=== PATIENT | female | born 1960 | race Caucasian/White ===

== ENCOUNTER → 2018-05-23 10:30 | Outpatient (CLI) | payer MEDICAID, SELFPAY ==
--- NOTE | 2018-05-23 10:34 | RAD_ITS ---
STUDY: X-RAY - LEFT WRIST REASON FOR EXAM: Wrist pain. TECHNIQUE: 3 view(s) of the wrist were obtained. COMPARISON: None. FINDINGS: Normal visualized distal radius and ulna. Normal radiocarpal articulation. Normal distal radioulnar articulation. Normal carpal bones. There is moderate to severe joint space narrowing of the triscaphe articulation. Normal carpometacarpal articulation of the thumb. Normal second through fifth carpometacarpal articulations. Normal visualized metacarpal bones. The soft tissue structures are unremarkable. RAD/Wrist min 3 Views IMPRESSION: Triscaphe arthrosis. Electronically Signed: Mayito Jenkins MD at 14:35 EDT Tel , Service support ,
== END ==
PROVIDERS: Family Provider Nurse Practitioner Family; PCP Nurse Practitioner Family; Referring Provider Orthopaedic Surgery; Visit Provider Orthopaedic Surgery
DX: M25.532 Pain in left wrist (principal)
CPT/HCPCS: 73110

== ENCOUNTER → 2018-09-03 07:10 | Outpatient (CLI) | payer MEDICAID, SELFPAY ==
--- NOTE | 2018-09-03 10:18 | NEURO ---
NCS and/or EMG Patient Report Ordering Doctor: Prachi Rm DATE OF SERVICE: 09/03/18 This is a left upper extremity EMG and nerve conduction study performed on this 57-year-old female with a history of previously diagnosed carpal tunnel syndrome bilaterally several years ago. She has not had intervention. She says symptoms are now worse on the left side primarily affecting the wrist with pain on palpation. Also describes paresthesias in her left fourth and fifth digits. There is no neck pain, she is healthy otherwise and does not consume alcohol. Left upper extremity sensory and motor nerve conduction studies performed. The median motor and sensory distal latency is very mildly prolonged with preserved amplitude and conduction velocity. The ulnar motor distal latency is mildly prolonged across the elbow with mild reduction of amplitude and conduction velocity across the elbow. The ulnar sensory responses are preserved and the radial sensory response is preserved. The median and ulnar F waves are relatively preserved. Left upper extremity needle electromyography is performed. Muscles evaluated included the first dorsal interosseous, abductor pollicis brevis, extensor indicis proprius, brachioradialis, biceps, triceps and deltoid muscles. The abductor pollicis brevis and the first dorsal interosseous both demonstrated mild increase in insertional activity with 1+ fibrillation potentials and mild motor unit amplitude increase. All other muscles demonstrated normal insertional activity with absence of pathologic spontaneous activity. Motor unit potential recruitment pattern and amplitude was otherwise normal. 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
== END ==
PROVIDERS: Family Provider Nurse Practitioner Family; PCP Nurse Practitioner Family; Referring Provider Orthopaedic Surgery; Visit Provider Orthopaedic Surgery
DX: G56.02 Carpal tunnel syndrome, left upper limb (principal)
CPT/HCPCS: 95886; 95910

== ENCOUNTER 2020-12-14 05:23 | Day surgery (SDC) | payer MEDICAID, SELFPAY ==
[2020-09-20 15:38] VITALS: BMI 20.3
[2020-09-30 11:04] VITALS: BMI 21.2
--- NOTE | 2020-11-05 10:00 | EKG12_ITS ---
Test Reason : PRE OP Blood Pressure : / mmHG Vent. Rate : 094 BPM Atrial Rate : 094 BPM P-R Int : 114 ms QRS Dur : 096 ms QT Int : 346 ms P-R-T Axes : 072 062 049 degrees QTc Int : 432 ms Normal sinus rhythm Normal ECG Confirmed by TOLU VERDE, JOSAFAT ([id number]), publications editor JUWAN LOZA ([id number]) on 11/08/2020 9:30:15 AM Referred By: Deonna Rdz Confirmed By:ROSY MOTLEY MD
[2020-11-05 10:41] LABS: Hematocrit 43.8 % (37-47); Hemoglobin 14.6 g/dL (12.0-15.0); Mean Corp Hgb Conc 33.3 g/dL (32-36); Mean Corpuscular Hgb 30.7 pg (27.0-32.0); Mean Corpuscular Volume 92.2 fL (81-99); Mean Platelet Vol. 10.8 fl (6.2-12.0); Platelet Count 253 K/mm3 (150-450); RBC Distribution Width CV 13.1 % (11.6-14.6); RBC Distribution Width SD 44.5 fl (35.1-43.9); Red Blood Count 4.75 M/mm3 (4.2-5.4); White Blood Count 7.8 K/mm3 (4.4-11.0)
[2020-11-05 11:09] LABS: Magnesium 2.2 mg/dL (1.6-2.6)
[2020-11-05 11:12] LABS: Anion Gap 5 (5-15); BUN 16 mg/dL (7-18); BUN/Creat Ratio 21.8 RATIO (10-20); Calcium,Total 9.4 mg/dL (8.5-10.1); Chloride 109 mmol/L (98-107); Creatinine, Serum 0.73 mg/dL (0.55-1.02); EST Glomerular Filtration Rate 87 mL/min (>60); Est Glom Filt Rate - Afr Amer 105 mL/min (>60); Glucose 140 mg/dL (74-106); Potassium 4.2 mmol/L (3.5-5.1); Sodium Level 140 mmol/L (136-145)
[2020-12-06 15:59] VITALS: BMI 19.8
[2020-12-14] VITALS (15 sets, daily range): BP systolic 90–113; BP diastolic 60–79; PULSE 62–84; RESP 14–18; TEMP 36.2–36.7; O2SAT 96–100; BMI 20.7
[2020-12-14 06:25] LABS: Bedside Glucose 64 mg/dL (70-110)
[2020-12-14] MEDS: Lactated Ringers 1,000 ML 40 ML IV (06:28)
[2020-12-14] MEDS: Phenazopyridine 95 MG Tablet 190 MG PO (06:29)
[2020-12-14] MEDS: Gabapentin 600 MG Tablet PO (06:32)
[2020-12-14] MEDS: dexAMETHasone 10 MG/ML Vial 8 MG IV (06:33)
[2020-12-14] MEDS: Acetaminophen 500 MG Tablet 1000 MG PO ×4 (06:33→23:13)
[2020-12-14] MEDS: Enoxaparin 40 MG/0.4 ML Syringe SC (06:34)
[2020-12-14] MEDS: Scopolamine 1mg/72hr Patch 1 PATCH TD (06:34)
--- NOTE | 2020-12-14 06:48 | HP.PCM_ITS ---
- Problem List (1) Chronic pelvic pain in female Status: Chronic Comment: US done at [place]. Suspect pelvic congestion and pelvic floor dysfunction. failed trial doxycycline. recommend proceeding with TVH BSO possible laparoscopic assisted. - Kashif History and Physical Date of Admission: 12/14/20 Intake Vital Signs 12/06/20 Height 5 ft 7 in 12/06/20 Weight: 127 lb 12/06/20 BMI 19.8 12/06/20 BP 116/90 H Intake Visit Reasons: preop TVHBSO Chief Complaint: pre op TVHBSO Health Care Law Specialist Required: No Is patient in pain?: No Allergies NSAIDS (Non-Steroidal Anti-Inflamma Allergy (Verified 12/06/20 16:00) rash shellfish derived Allergy (Verified 12/06/20 16:00) rash Medications Clonazepam 1 mg PO TID 02/10/15 [History Confirmed 12/06/20] atorvastatin 20 mg tablet 20 mg PO QHS 06/28/20 [History Confirmed 12/06/20] calcium citrate 250 mg calcium-vitamin D3 5 mcg (200 unit) tablet 1 tab PO TID 06/28/20 [History Confirmed 12/06/20] cholecalciferol (vitamin D3) 1,250 mcg (50,000 unit) capsule 1,250 mcg PO MO 06/28/20 [History Confirmed 12/06/20] phytonadione (vitamin K1) 100 mcg tablet 100 mcg PO DAILY 06/28/20 [History Confirmed 12/06/20] pregabalin 75 mg capsule 75 mg PO TID 06/28/20 [History Confirmed 12/06/20] acetaminophen 300 mg-codeine 15 mg tablet 1 tab PO BID PRN #30 tablet 11/15/20 [Rx Confirmed 12/06/20] Is last menstrual period known: No Post menopausal: No Patient : No : No [facility] Medical History Essential tremor (Acute) Fibromyalgia (Acute) Hyperlipidemia (Acute) Osteoporosis (Acute) PID (pelvic inflammatory disease) (Acute) Rheumatoid arthritis (Acute) Surgical History H/O hernia repair (Acute) H/O knee surgery (Acute) H/O laparoscopy (Acute) History of cholecystectomy (Acute) S/P wrist surgery (Acute) Family History Son Diabetes Social History (Updated 12/06/20 @ 16:[address] Deonna Rdz MD) Smoking Status: Heavy Smoker (>10/day) alcohol intake: never substance use type: does not use caffeine: Yes what type of physical activity do you participate in: walking do you feel safe at home: Yes additional social history: Kashif- Patient works at [employer] in [place] HPI preop TVHBSO: Details: * MINA QUEZADA is a 60 year old who presents for preop visit she is having a hysterectomy for chronic pelvic pain. Female Reproductive History Questions: Metorrhagia: No Menopausal Symptoms: No night sweats Pregancy History 4 Elective abortions Hx Para 4 Spontaneous abortions Hx # Term Pregnancies Ectopic pregnancies Hx # Pregnancies Multiple births # of living children ROS Const Constitutional: Denies fatigue, night sweats, weight gain or weight loss ENT ENT: Reports system reviewed and no additional complaints, except as docu Cardio Card: Denies chest pain Resp Resp: Denies cough or dyspnea GI GI: Reports abdominal pain and bloating (occasional); denies change in bowel habits, constipation, nausea or vomiting : Denies nipple discharge, urinary frequency, urinary incontinence, urinary hesitancy, urinary urgency, vaginal discharge, vaginal dryness, vaginal odor or vaginal itching Musc Musc: Denies joint pain, back pain or muscle weakness Skin Skin/Breast: Denies hair loss, change in hair, dry skin, breast lump, breast pain, breast skin changes or nipple discharge Neuro Neuro: Reports system reviewed and no additional complaints, except as docu Psych Psych: Reports system reviewed and no additional complaints, except as docu Endo Endo: Denies cold intolerance, excessive sweating, heat intolerance or increased thirst Rickie/Lymph Hematologic/Lymphatic: Denies easy bleeding, Denies easy bruising, Denies enlarged lymph nodes Exam Const General: cooperative, healthy appearing, comfortable, no acute distress, well developed Orientation: alert [facility] Head: normal to inspection, normocephalic Ears: hearing grossly normal bilaterally, external ears normal Nose: external nose normal, nares normal Face and sinus: normal facial exam Neck Neck: normal visual inspection, no lymphadenopathy Thyroid: thyroid normal Chest Chest palpation & inspection: normal inspection of the chest Resp Effort & Inspection: normal respiratory effort Auscultation: clear to auscultation bilaterally Cardio Rate: regular rate Rhythm: regular rhythm Heart Sounds: S1 normal, S2 normal GI Inspection: normal to inspection, non-distended Palpation: soft, no hepatosplenomegaly General: bladder normal to palpation External Female Exam: normal external appearance, normal appearance of the urethra Urethra: normal appearance of the urethra, normal palpation, no discharge Speculum Exam - Vagina: normal appearance of the vagina, normal vaginal discharge Speculum Exam - Cervix: normal appearance of the cervix, cervical tenderness Bimanual Exam- Vagina & Uterus: normal bimanual exam, uterine size normal, bladder normal to palpation, uterine shape normal, cervical tenderness, uterine mobility normal, uterine consistency normal, normal cervical palpation, uterus tender Bimanual Exam- Adnexa, other: normal adnexae, adnexae mobile, no adnexal masses, rectocele Pelvic Support: rectocele moderate Musc Other: gross motor intact no deficits, full bilateral strength Skin General: no rashes or lesions noted Neuro General: alert, awake, moves all extremities, no focal motor deficits Motor: muscle tone normal throughout Extrem General: normal to inspection, no pedal edema Psych Appearance: grossly normal Mental Status: mental status grossly normal Affect: normal affect Speech and Movement: speech and movement normal Assessment & Plan Problems 1. Chronic pelvic pain in female R10.2; G89.29 US done at [place]. Suspect pelvic congestion and pelvic floor dysfunction. failed trial doxycycline. recommend proceeding with TVH BSO possible laparoscopic assisted. - Kashif Plan After discussing the patient's diagnosis and treatment plan options, patient wishes to proceed with surgical management. I have discussed with the patient the risks, benefits, and alternatives of the procedure which include but are not limited to risks of anesthesia, bleeding, infection, possible damage to bowel, bladder, or surrounding vasculature which could lead to additional surgery to evaluate any complications. Patient agrees to procedure and wishes to proceed. ACOG/uptodate references given for additional information regarding procedure. Coding Level of Care Code No Charge Diagnoses Chronic pelvic pain in female R10.2; G89.29 UPDATE- I have seen the patient and performed any clinically relevant updates to the history and physical exam. Deonna Rdz MD
[2020-12-14] MEDS: Cefazolin 2 GM in 0.9% Normal Saline 100 ML IV (07:28)
--- NOTE | 2020-12-14 07:30 | HYST_PTH ---
PATIENT: MINA QUEZADA LOC: [facility] U#:[id number] AGE/SX: 60/F ROOM: RE12/14/[address]: Dr. Deonna Rdz MD : [id number] BED: DIS: 12/15/2020 SPEC #: [id number] RECD: 12/14/20 10:23 STATUS: BEATRIS GANDHI #: [id number] CASSANDRA: 12/14/20 07:[address]: Deonna Rdz DEPT: SURGICAL PATHOLOGY RECD BY: Rosemary Ribeiro Tissues: Uterus, NOS Procedures: Surgery Specimen Level V HEADER OPERATION: ERAS, total vaginal hysterectomy, bilateral salpingo-oophorectomy PRE-OP DIAGNOSIS: Chronic pelvic pain TISSUE SUBMITTED: Uterus, cervix, bilateral fallopian tubes, bilateral ovaries MICROSCOPIC DIAGNOSIS Uterus, cervix, bilateral fallopian tubes and bilateral ovaries, vaginal hysterectomy and bilateral salpingo-oophorectomy: Cervix - mild chronic inflammation. Endometrium - weakly proliferative endometrium. Myometrium - no pathologic diagnosis. Bilateral fallopian tubes - no pathologic diagnosis. Bilateral ovaries - no pathologic diagnosis. SJ:vanessa 12/15/2020 MICROSCOPIC DESCRIPTION Slides are reviewed. GROSS DESCRIPTION Received in fixative is one container labeled with the patient's name and designated uterus. The specimen consists of a uterus with attached cervix, two detached fallopian tubes and ovaries, not designated. The uterus with cervix measures 7.5 x 4.8 x 2.7 cm and weighs 46 gm. The ectocervix is unremarkable. The cervical os is oval in contour. The endocervical canal measures 3 cm in length and is grossly unremarkable. The triangular endometrial cavity measures 3 x 2.5 cm. The velvety, light rowe endometrium measures up to 0.2 cm in thickness. The myometrium measures 1.5 cm in average thickness and is free of mass lesions. The two ovaries are similar in appearance. One ovary measures 2.5 x 1.6 x 0.8 cm. Serial sections of this ovary does not reveal mass lesions. Adjacent fallopian tube measures 2.5 cm in length and 0.5 cm in diameter. Fimbrial end is present. Tubo-ovarian adhesions are not identified. Second ovary measures 3 x 2.5 x 1.0 cm. Sections do not reveal any mass lesions. Adjacent second fallopian tube is similar appearance to first one and measures 2.5 cm in length and 0.5 cm in diameter. Reimbursement Spec sections are submitted in eight cassettes as follows: 1 - anterior cervix, 2 - posterior cervix, 3 & 4 - anterior uterine wall, 5 & 6 - posterior uterine wall, 7 - one fallopian tube and adjacent ovary, 8 - the other fallopian tube and adjacent ovary. / AM:vanessa 12/14/20 TC:5 CPT: 08052
--- NOTE | 2020-12-14 07:41 | PCM.OPRPT ---
Problem List (1) Chronic pelvic pain in female Status: Chronic Comment: US done at [place]. Suspect pelvic congestion and pelvic floor dysfunction. failed trial doxycycline. recommend proceeding with TVH BSO possible laparoscopic assisted. - Kashif Report of Operation Date of Procedure: 12/14/20 Pre-Operative Diagnosis: chronic pelvic pain Post-Operative Diagnosis: same Surgery/Procedure Performed:: Total vaginal hysterectomy bilateral salpingo-oophorectomy Description of Surgical Findings:: Pelvic congestion business center representative: Arsenio Lin Type of Anesthesia:: General Special Medications: None Specimen's removed: Uterus tubes and ovaries Drains: simental Estimated Blood Loss (mL): 50 Fluids Replaced: Crystalloid Description of Procedure: Patient was taken to the operating room and was placed under general anesthesia was prepped and draped in normal sterile fashion in the dorsal lithotomy position. Preoperative antibiotics and SCDs and Simental catheter was placed inside the bladder. Weighted speculum was placed in the vagina and the anterior and posterior lip of the cervix was grasped with 2 Mahnaz clamps and circumferentially injected with dilute vasopressin. A circumferential incision was made with a scalpel and the posterior cul-de-sac was entered into sharply and a longneck speculum was placed. The anterior cul-de-sac was also dissected down and entered into sharply and the uterosacral ligaments were clamped cut and suture ligated bilaterally followed by the cardinal ligaments which were Clamped cut and suture ligated bilaterally with 0 Monocryl. The uterus serially descended and progressive bites were taken bilaterally up to the level of the utero-ovarian ligament bilaterally which was clamped transected and double ligated with 0 Monocryl suture and 0 Vicryl free tie. Bilateral fallopian tubes and ovaries were well visualized and noted be within normal limits and the bilateral fallopian tubes and ovaries were then clamped, transected across the base of the IP ligament with a Perla clamp and removed and double ligated with 0 monocryl suture and an 0 vicryl free tie. Some venous dilation and small hematoma was noticed at the right pelvic sidewall where the ovary was removed so this was clamped with a right angle clamp and then oversewed with a [id number] and no enlargement or other abnormalities were noted. Excellent hemostasis was noted. Posterior peritoneum and the vagina were closed with [id number] 0 Vicryl pop offs including the posterior and anterior peritoneum in the reapproximation. Excellent hemostasis was noted. All instruments removed from the vagina clear urine was noted at the end of the procedure and patient was awoken and taken recovery in stable condition. Grafts/Implants Used: none - Complications none - Admit VTE Documentation VTE Present on Admission: No VTE Mechan Device Prophylaxis: SCD's Multi Select Codes - Urinary/Genital Urinary/Genital CPT Codes: 63716 TVH+BS/O <250gr uterus
[2020-12-14] MEDS: Vasopressin 20 UNITS/ML Vial (07:50)
[2020-12-14] MEDS: Lactated Ringers 1,000 ML 70 ML IV ×2 (08:45→15:28)
[2020-12-14 09:35] LABS: Bedside Glucose 138 mg/dL (70-110)
[2020-12-14] MEDS: oxyCODONE 5 MG Tablet PO ×2 (11:28→17:10)
[2020-12-14] MEDS: Docusate Sodium 100 MG Capsule PO ×2 (11:29→21:04)
[2020-12-14] MEDS: Pregabalin 75 MG Capsule PO ×2 (13:24→21:04)
--- NOTE | 2020-12-14 13:27 | PCM.DC.VHY ---
Discharge Diet: No Restrictions Discharge Activity: Return to Normal Activity, May Not Drive, May Shower May resume sexual activity in: 6-8 weeks Call your doctor if your incision/area has: Continuous Slow Oozing, Sudden Increased Bleeding, Increased Pain/ Swelling, Increased Redness, Foul Smelling Discharge Call your doctor if you observe: Fever of 101 or Higher, Inability to urinate, Inability to have a bowel movement, Using more than one pad per hour Allergies/Adverse Reactions: Allergies NSAIDS (Non-Steroidal Anti-Inflamma Allergy (Verified 12/14/20 06:00) rash shellfish derived Allergy (Verified 12/14/20 06:00) rash Medications to take at Discharge Clonazepam 1 mg PO TID 02/10/15 atorvastatin 20 mg tablet 20 mg PO QHS 06/28/20 calcium citrate 250 mg calcium-vitamin D3 5 mcg (200 unit) tablet 1 tab PO TID 06/28/20 cholecalciferol (vitamin D3) 1,250 mcg (50,000 unit) capsule 1,250 mcg PO MO 06/28/20 phytonadione (vitamin K1) 100 mcg tablet 100 mcg PO DAILY 06/28/20 pregabalin 75 mg capsule 75 mg PO TID 06/28/20 acetaminophen 300 mg-codeine 15 mg tablet 1 tab PO BID PRN #30 tablet 11/15/20 Oxycodone HCl/Acetaminophen [Percocet 5-325] 1 - 2 tablet PO Q6H PRN PRN 7 Days #28 tab 12/14/20 The following prescriptions were given: Oxycodone HCl/Acetaminophen [Percocet 5-325] 1 - 2 tablet PO Q6H PRN PRN 7 Days #28 tab PRN Reason: Moderate-Severe pain Transmission Status: Received by [facility] Orders to be completed after discharge: 12 Lead EKG [[facility]] Time Frame: 11/05/20, Facility: [facility] Location: Cardiovascular Services Primary Care Physician: CAN LLOYD [Other] Test Results: Test results from this visit will be discussed in further detail at your follow-up appointment, if applicable. Please Follow Up With: Deonna Rdz MD - [phone]
[2020-12-14] MEDS: clonazePAM 1 MG Tablet PO ×2 (13:29→21:04)
[2020-12-14] MEDS: Calcium Carb/Vitamin D 1 TABLET Tablet PO (17:12)
[2020-12-14] MEDS: Atorvastatin Calcium 20 MG Tablet PO (21:04)
[2020-12-14] MEDS: Ondansetron ODT 4 MG Tablet PO (23:14)
[2020-12-15 01:31] VITALS: BP 106/64; PULSE 62; RESP 18; TEMP 36.8; O2SAT 96
[2020-12-15] MEDS: oxyCODONE 5 MG Tablet PO ×2 (01:32→08:59)
[2020-12-15 06:01] LABS: Hematocrit 34.2 % (37-47); Hemoglobin 11.2 g/dL (12.0-15.0); Mean Corp Hgb Conc 32.7 g/dL (32-36); Mean Corpuscular Hgb 30.7 pg (27.0-32.0); Mean Corpuscular Volume 93.7 fL (81-99); Mean Platelet Vol. 10.9 fl (6.2-12.0); Platelet Count 212 K/mm3 (150-450); RBC Distribution Width CV 13.9 % (11.6-14.6); RBC Distribution Width SD 47.6 fl (35.1-43.9); Red Blood Count 3.65 M/mm3 (4.2-5.4); White Blood Count 12.4 K/mm3 (4.4-11.0)
[2020-12-15] MEDS: Acetaminophen 500 MG Tablet 1000 MG PO (06:19)
[2020-12-15] MEDS: Pregabalin 75 MG Capsule PO (06:19)
[2020-12-15] MEDS: clonazePAM 1 MG Tablet PO (06:23)
[2020-12-15 06:25] VITALS: BP 102/59; PULSE 76; RESP 18; TEMP 36.7; O2SAT 94
[2020-12-15] MEDS: Calcium Carb/Vitamin D 1 TABLET Tablet PO (07:40)
[2020-12-15] MEDS: Docusate Sodium 100 MG Capsule PO (07:40)
[2020-12-15] MEDS: Enoxaparin 40 MG/0.4 ML Syringe SC (07:41)
--- NOTE | 2020-12-15 07:46 | PCM.PN.OB ---
Subjective: patient recovering well, denies CP, SOB, N, or V. patient is ambulating, voiding ,tolerating adequate po, and pain is controlled with oral medications. - Physical Exam Vitals/I&O's: Vital Signs Temp Pulse Resp BP Pulse Ox 98.1 F 76 18 102/59 L 94 12/15/20 06:25 12/15/20 06:25 12/15/20 06:25 12/15/20 06:25 12/15/20 06:25 Oxygen Flow Rate (L/min) 2 Oxygen Delivery Method Room Air Weight: 132 lb 4.438 oz Body Mass Index (BMI) 20.7 Finger Stick Blood Glucose 138 Intake and Output for Last 24 Hours 12/13/20 12/14/20 12/15/20 23:59 23:59 23:59 Intake Total 2558.67 / 2558.67 1000 / 1000 Output Total 1850 / 1850 Balance 708.67 / 708.67 1000 / 1000 General: Alert, Oriented x3, Cooperative HEENT: Atraumatic Abdomen: Soft Microbiology Past 72 Hours 12/13/20 10:00 Interface Orders SARS-CoV-2 Antigen (Rapid) - Final Laboratory Results 12/14/20 06:50: Blood Type O POSITIVE, Antibody Screen NEGATIVE 12/14/20 09:29: POC Glucose 138 H 12/15/20 05:14: WBC 12.4 H, RBC 3.65 L, Hgb 11.2 L, Hct 34.2 L, MCV 93.7, MCH 30.7, MCHC 32.7, RDW Std Deviation 47.6 H, RDW Coeff of Alberto 13.9, Plt Count 212, MPV 10.9 Current Medications Acetaminophen (Acetaminophen 500 Mg Tablet) 1,000 mg PO Q6 [facility] Last Admin: 12/15/20 06:19 Dose: 1,000 mg Documented by: Atorvastatin Calcium (Atorvastatin Calcium 20 Mg Tablet) 20 mg PO QHS [facility] Last Admin: 12/14/20 21:04 Dose: 20 mg Documented by: Calcium/Vitamin D (Calcium Carb/Vitamin D 1 Tablet Tablet) 1 tablet PO TIDCM [facility] Last Admin: 12/15/20 07:40 Dose: 1 tablet Documented by: Clonazepam (Clonazepam 1 Mg Tablet) 1 mg PO TID [facility] Last Admin: 12/15/20 06:23 Dose: 1 mg Documented by: Docusate Sodium (Docusate Sodium 100 Mg Capsule) 100 mg PO BID [facility] Last Admin: 12/15/20 07:40 Dose: 100 mg Documented by: Enoxaparin Sodium (Enoxaparin 40 Mg/0.4 Ml Syringe) 40 mg SC DAILY [facility] Last Admin: 12/15/20 07:41 Dose: 40 mg Documented by: Ergocalciferol (Ergocalciferol 50,000 Unit Capsule) 50,000 unit PO MO [facility] Lactated Ringer's () 1,000 mls @ 70 mls/hr IV .[id number] [facility] Stop: 12/15/20 09:03 Last Infusion: 12/15/20 07:39 Dose: Infused Documented by: Magnesium Chloride (Magnesium Chloride 64 Mg Delay Rel.Tablet) 128 mg PO DAILY PRN PRN PRN Reason: Constipation Nutritional Formula (Lactose Free) (Ensure Enlive 120 Ml Liquid) 120 ml PO TIDCM [facility] Last Admin: 12/15/20 07:44 Dose: 120 ml Documented by: Ondansetron HCl (Ondansetron Odt 4 Mg Tablet) 4 mg PO Q6H PRN PRN PRN Reason: NAUSEA Last Admin: 12/14/20 23:14 Dose: 4 mg Documented by: Oxycodone HCl (Oxycodone 5 Mg Tablet) 5 - 10 mg PO Q4H PRN PRN PRN Reason: Pain Score 4-10 Last Admin: 12/15/20 01:32 Dose: 10 mg Documented by: Pregabalin (Pregabalin 75 Mg Capsule) 75 mg PO TID [facility] Last Admin: 12/15/20 06:19 Dose: 75 mg Documented by: Sodium Chloride (0.9% Saline Lock 10 Ml Syringe) 10 - 40 ml IV UD PRN PRN Reason: SALINE FLUSH Medical Necessity - Tobacco Use Smoking Status: Heavy Smoker (>10/day) Assessment/Plan patient is s/p TVH BSO POD 1 1. routine ERAS protocol postop care- increase ambulation, encourage oral intake and oral control of pain. patient stable for discharge to home.
[2020-12-15 08:06] VITALS: BP 105/68; PULSE 75; RESP 16; TEMP 36.6; O2SAT 96
[2020-12-15 08:58] VITALS: O2SAT 95
== END 2020-12-15 10:30 | disposition home or self-care (01) ==
LOC: SDC 05:25 → AC 05:25 → MS3 10:43
PROVIDERS: Anesthesiology; Referring Provider Obstetrics & Gynecology; Visit Provider Obstetrics & Gynecology
PROC: (CPT 58260; principal; 2020-12-14 07:10)
DX: N72 Inflammatory disease of cervix uteri (principal); Z20.822 Contact with and (suspected) exposure to COVID-19; G25.0 Essential tremor; M79.7 Fibromyalgia; E78.5 Hyperlipidemia, unspecified; M81.0 Age-related osteoporosis without current pathological fracture; M06.9 Rheumatoid arthritis, unspecified; G25.81 Restless legs syndrome; K58.9 Irritable bowel syndrome, unspecified; E78.00 Pure hypercholesterolemia, unspecified; Z78.0 Asymptomatic menopausal state; Z79.899 Other long term (current) drug therapy; F17.200 Nicotine dependence, unspecified, uncomplicated
CPT/HCPCS: 58262; 36415; 80048; 82962; 83735; 85027; 86850; 86900; 86901; 87426; 88307; 93005; 99251; 99406; C9803; J7120; G0463; J2405; J3475

== ENCOUNTER → 2020-12-27 | Outpatient (CLI) | payer MEDICAID, SELFPAY ==
[2020-12-27 10:54] VITALS: BMI 20.7
== END | disposition home or self-care (01) ==
LOC: LABSPEC 13:09
PROVIDERS: Referring Provider Obstetrics & Gynecology; Visit Provider Obstetrics & Gynecology
DX: R30.0 Dysuria (principal)
CPT/HCPCS: 87086; 87088